=== PATIENT | female | born 1990 | race Caucasian/White ===

== ENCOUNTER 2017-03-05 01:00 | Day surgery (SDC) | payer BC, OTHER ==
[2017-03-05 01:32] VITALS: BP 124/76; TEMP 99.4; BMI 31.3
[2017-03-05 02:08] LABS: Amnisure Test No Membranes Rupture (No Rupture)
--- NOTE | 2017-03-05 07:09 | PRG ---
OB ER ENCOUNTER DATE OF SERVICE: 03/05/2017 PRIMARY PRIVATE INVESTIGATOR SURVEILLANCE: Sara Arteaga M.D. CHIEF COMPLAINT: Leakage of fluid. HISTORY OF PRESENT ILLNESS: The patient is a 26-year-old female with an intrauterine at 3 9 weeks and 0 days who presents to labor and delivery today after experiencing some leakage of fluid that she says has kept her underwear moist. The patient denies any regular contractions, any vagin al bleeding. She denies any headache, chest pain, shortness of breath. She has had some nausea, de nies vomiting. Had diarrhea yesterday, has had several bowel movements today, but denies any consti pation. She denies any new rashes, hip problems or knee problems. She does report some tightness i n her hips and back. Denies any urinary urgency or frequency. PAST MEDICAL HISTORY: The patient has neurofibromatosis. PAST SURGICAL HISTORY: Negative. ALLERGIES: AMOXICILLIN and PEANUT OIL. MEDICATIONS: vitamins. SOCIAL HISTORY: Denies drug, alcohol or tobacco use. OB LABS: Unavailable at the time of dictation. REVIEW OF SYSTEMS: Per HPI. PHYSICAL EXAMINATION: VITAL SIGNS: Blood pressure 124/76, heart rate 71, respiratory rate 18, temperature 99.4. GENERAL: She appears to be in no acute distress. She is alert and oriented, cooperative and pleasa nt to interact with. HEENT: Head is normocephalic, atraumatic. LUNGS: Clear to auscultation bilaterally. HEART: Regular rate and rhythm. ABDOMEN: Soft. EXTREMITIES: Nontender, nonedematous. CERVICAL EXAM: The patient is closed and thick per nursing staff. heart tracing performed fo r threatened labor at term, duration is about 1 hour, baseline is in the 130s with moderate long-ter m variability, positive accelerations, no decelerations, and no consisting contractions visible on t he monitor. AmniSure test is negative. ASSESSMENT AND PLAN: The patient is a 26-year-old G1, P0 female with an intrauterine at 3 9 weeks who presented for leakage of fluid; however, has no evidence of rupture of membranes at this time. The patient has a fetus with category 1 tracing. The patient will be discharged to home wit h instructions to follow up with her primary OB as scheduled.
== END 2017-03-05 02:42 | disposition home or self-care (01) ==
LOC: L&D/OP 01:00
PROVIDERS: ATTEND Obstetrics & Gynecology
DX: O26.893 Other specified pregnancy related conditions, third trimester (principal); Q85.00 Neurofibromatosis, unspecified; Z3A.39 39 weeks gestation of pregnancy; Z79.899 Other long term (current) drug therapy; Z88.0 Allergy status to penicillin; Z91.010 Allergy to peanuts; Z87.891 Personal history of nicotine dependence
CPT/HCPCS: 84112

== ENCOUNTER 2017-03-12 20:36 | Inpatient (IN) | payer BC, OTHER ==
[~2017-03-12 20:36] MED LIST: Acetaminophen 500 MG TAB PO PRN; HYDROcodone/Acetaminophen 5/325 mg Tablet PO PRN; Ibuprofen 800 MG TAB PO PRN; LR / Pitocin 40 units/1000 ml 1,000 ML IV PRN; Lidocaine 1% (PF) 30 ML VIAL SC PRN; Ondansetron HCl/PF 4 MG/2 ML Vial IVP PRN; Promethazine HCl 25 MG/ML VIAL IM PRN; Zolpidem Tartrate 5 MG TAB PO PRN
[2017-03-12 21:00] VITALS: BMI 32.1
[2017-03-12] MEDS: Lactated Ringer's 1,000 ML IV SCH (21:12)
[2017-03-12] MEDS: Misoprostol 100 MCG TAB VAG SCH (21:30)
[2017-03-12 21:32] LABS: Mean Platelet Volume 9.5 fL (7.4-10.4); Red Blood Cell (RBC) Count 3.87 mill/uL (4.20-5.40)
[2017-03-12] MEDS: LR 500 ML/Oxytocin 10 units 500 ML IV SCH (21:32)
[2017-03-13] MEDS: Misoprostol 100 MCG TAB VAG SCH ×3 (01:06→13:43)
[2017-03-13] MEDS ORDERED: Fentanyl 4 mcg/Marc 0.1% Cadd 100 ML ONE (05:02)
[2017-03-13] MEDS: Lactated Ringer's 1,000 ML IV SCH ×2 (05:33→13:37)
[2017-03-13] MEDS ORDERED: Acetaminophen 325 MG TAB PO PRN (05:43)
[2017-03-13] MEDS ORDERED: ePHEDrine/0.9% NaCl/PF SYRINGE 50 mg/10 ml SLOW IVP PRN (05:43)
[2017-03-13] MEDS ORDERED: Ondansetron HCl/PF 4 MG/2 ML Vial IVP PRN (05:43)
[2017-03-13] MEDS ORDERED: Lactated Ringer's 500 ML IV PRN (05:43)
[2017-03-13] MEDS ORDERED: Eucerin (Mineral Oil/Petrolatum,White) 30 gm Jar TOP PRN (05:43)
[2017-03-13] MEDS ORDERED: Naloxone HCl 0.4 mg/ml Vial IVP PRN ×2 (05:43)
[2017-03-13] MEDS ORDERED: Promethazine HCl 25 MG/ML VIAL IM PRN (05:43)
[2017-03-13] MEDS ORDERED: diphenhydrAMINE HCl 50 MG/ML 1 ML VIAL IVP PRN (05:43)
[2017-03-13] MEDS ORDERED: Communication Order-Pharmacy FS SCH (05:45)
[2017-03-13] MEDS ORDERED: Fentanyl 4mcg/Marcaine 0.1% Cassette 100 ML EPIDURAL SCH (05:45)
[2017-03-13] MEDS: LR 500 ML/Oxytocin 10 units 500 ML IV SCH (05:59)
--- NOTE | 2017-03-13 19:03 | PDOC.OPDEL ---
OB Operative/Delivery Note Delivery Dr/Surgeon: Jenni Pre-Delivery Diagnosis: elective induction Procedure/Post Delivery Dx: spontaneous vaginal delivery Weeks gestation: 40 Anesthesia: epidural - Findings A Sex: female Weight: 6 lb 14 oz - 5 min: 9 - 10 min: 9 - Additional Findings/Plan Placenta delivered: spontaneous Repaired Obstetrical Laceration: 1st degree Estimated blood loss: 200ml Post delivery plan: routine recovery
[2017-03-13] MEDS ORDERED: diphenhydrAMINE HCl 25 MG CAP PO PRN (19:04)
[2017-03-13] MEDS ORDERED: Bisacodyl 10 MG SUPP PR PRN (19:04)
[2017-03-13] MEDS ORDERED: Preparation H Ointment 28 GM TUBE PR PRN (19:04)
[2017-03-13] MEDS ORDERED: traMADol HCl 50 MG TAB PO PRN (19:04)
[2017-03-13] MEDS ORDERED: Benzocaine/Menthol 20-0.5% 60 ML CAN TOP PRN (19:04)
[2017-03-13] MEDS ORDERED: Lanolin Ointment 7 GM TUBE TOP PRN (19:04)
[2017-03-13] MEDS ORDERED: Milk Of Magnesia 30 ML UDCUP PO PRN (19:04)
[2017-03-13] MEDS ORDERED: LR / Pitocin 40 units/1000 ml 1,000 ML IV SCH (19:15)
[2017-03-13] MEDS: Docusate (Surfak) 240 MG CAP PO SCH (22:09)
[2017-03-13] MEDS: Ibuprofen 800 MG TAB PO SCH (22:09)
[2017-03-14] MEDS: Ibuprofen 800 MG TAB PO SCH ×3 (06:03→21:47)
--- NOTE | 2017-03-14 07:24 | PDOC.PP ---
Post Progress Note Post Day #: 1 PO intake tolerated: yes Flatus: yes Ambulation: yes Vital Signs (12 hours) Temp Pulse Resp BP 03/14/17 05:00 98.3 F 73 18 105/53 L 03/14/17 04:00 98.3 F 75 18 03/14/17 00:00 98.3 F 75 18 03/13/17 22:36 98.5 F 79 18 121/65 Weight Weight 176 lb - Physical Examination General: NAD Cardiovascular: no m/r/g, RRR Respiratory: clear to ausculation bilateral Abdominal: + bowel sounds, lochia, no distention, appropriately TTP Result Diagrams: 03/12/17 21:19 Additional Labs: Post Labs Blood Type A POSITIVE 03/12/17 21:19 Hep Bs Antigen Non-Reactive S/CO (NonReactive) 03/12/17 21:19 - Assessment/Plan post day 1 doing well d/c in AM
[2017-03-14] MEDS ORDERED: Adacel (T-DAP) 0.5 ML VIAL IM ONE (09:00)
[2017-03-14] MEDS: Ferrous Sulfate 325 MG TAB PO SCH ×2 (09:39→09:40)
[2017-03-14] MEDS: Docusate (Surfak) 240 MG CAP PO SCH ×2 (09:41→21:47)
[2017-03-14] MEDS: Prenatal Vitamin 1 TAB PO SCH (09:41)
[2017-03-14 17:26] VITALS: TEMP 98.3
[2017-03-15] MEDS: Ibuprofen 800 MG TAB PO SCH (04:34)
--- NOTE | 2017-03-15 08:15 | PDOC.PP ---
Post Progress Note Post Day #: 2 PO intake tolerated: yes Flatus: yes Ambulation: yes Weight Weight 176 lb - Physical Examination General: NAD Cardiovascular: no m/r/g, RRR Respiratory: clear to ausculation bilateral Abdominal: + bowel sounds, lochia, no distention, appropriately TTP Result Diagrams: 03/12/17 21:19 Additional Labs: Post Labs Blood Type A POSITIVE 03/12/17 21:19 Hep Bs Antigen Non-Reactive S/CO (NonReactive) 03/12/17 21:19 - Assessment/Plan doing well post day 2 d/c home f/u 6 weeks
[2017-03-15] MEDS: Ferrous Sulfate 325 MG TAB PO SCH (09:33)
[2017-03-15] MEDS: Docusate (Surfak) 240 MG CAP PO SCH (09:36)
[2017-03-15] MEDS: Prenatal Vitamin 1 TAB PO SCH (09:36)
[2017-03-15 09:50] VITALS: BP 123/67
[2017-03-15] MEDS ORDERED: Bupivacaine 0.25% HCL 30 ML VIAL ONE (14:38)
== END 2017-03-15 10:30 | disposition home or self-care (01) | DRG 775 ==
LOC: L&D 20:36 → 3SW 03-13 21:41
PROVIDERS: ADMIT Obstetrics & Gynecology; ATTEND Obstetrics & Gynecology
PROC: 10E0XZZ Delivery of Products of Conception, External Approach (ICD-10-PCS; principal; 2017-03-13)
DX: O70.0 First degree perineal laceration during delivery (principal); Q85.00 Neurofibromatosis, unspecified; Z37.0 Single live birth; Z3A.40 40 weeks gestation of pregnancy; O99.89 Other specified diseases and conditions complicating pregnancy, childbirth and the puerperium
CPT/HCPCS: 36415; 85027; 86780; 87340; J0595; J2405; J7120; S0020

== ENCOUNTER 2017-06-14 04:21 | Emergency (ER) | payer BC ==
[2017-06-14] MEDS ORDERED: Ibuprofen 800 MG TAB ONE (06:04)
--- NOTE | 2017-06-14 08:26 | ULT ---
PRELIMINARY REPORT/[facility]/EMERGENCY AFTER HOURS PROCEDURE: EXAM: US Abdomen Limited, Right Upper Quadrant CLINICAL HISTORY: 26 years old, female; Pain and signs and symptoms; Nausea; Abdominal pain; Localized; Right upper antonio drcristi (ruq) TECHNIQUE: Real-time ultrasound of the right upper quadrant with image documentation. COMPARISON: No relevant prior studies available. FINDINGS: Normal gallbladder. No cholelithiasis. No gallbladder wall thickening or pericholecystic fluid. No biliary dilation, common duct measures 3.6 mm. Unremarkable liver, no focal abnormality. Visible pancreas unremarkable. Images of the right kidney show no hydronephrosis. IMPRESSION: Essentially unremarkable right upper quadrant abdominal ultrasound. No cholelithiasis or biliary tree dilation. Thank you for allowing us to participate in the care of your patient. Dictated and Authenticated by: Silvio Gutiérrez MD 06/14/2017 5:32 AM Central Time ([place] & [place]) FINAL REPORT RIGHT UPPER QUADRANT ULTRASOUND: CLINICAL HISTORY: Right upper quadrant pain with nausea. FINDINGS: No focal hepatic lesion or acute gallbladder pathology identified. The common duct is normal measuri ng 3 mm in diameter. Fulton's sign is reported as negative. No ascites. IMPRESSION: No acute gallbladder pathology evident sonographically. POS: [facility]
== END 2017-06-14 06:08 | disposition home or self-care (01) ==
LOC: ERS 04:21
DX: K29.70 Gastritis, unspecified, without bleeding (principal); F17.290 Nicotine dependence, other tobacco product, uncomplicated; F17.210 Nicotine dependence, cigarettes, uncomplicated
CPT/HCPCS: 76705

== ENCOUNTER 2018-01-01 23:18 | Emergency (ER) | payer BC, OTHER ==
[2018-01-02] LABS: Bilirubin Negative (Negative); Blood, Urine Large (Negative); Clarity CLEAR (Clear); Glucose, Urine (Dipstick) Negative (Negative); Leukocyte Negative (Negative); Nitrite Negative (Negative); Protein, Urine (Dipstick) Negative (Neg-Trace); Specific Gravity, Urine 1.025 (1.002-1.036); Urobilinogen 0.2 mg/dL (0.2-1.0); pH, Urine 5.5 (5.0-9.0)
[2018-01-02 00:02] LABS: Bacteria/HPF None Seen HPF (None Seen); Hyaline Casts/LPF 0-3 HYALINE CAST LPF (0-3 Hyaline); Pathc Cast-AUWi Flag 0.14 (0-2.49); Pregnancy Test - Urine (BHCG) Negative (Negative); Pregu Control Background? CLEAR/WHITE (CLR/WHITE); Pregu Control Bar Appear? YES (CONTROL BAR); RBC/HPF 0-3 HPF (0-3); Specific Gravity 1.025 (1.002-1.036); Squamous Epithelial 0-3 HPF (0-3); WBC/HPF 0-3 HPF (0-3)
[2018-01-02 04:08] LABS: #Basophils 0.1 thou/uL (0.0-0.2); #Eosinphils 0.3 thou/uL (0.0-0.7); #Lymphocytes 1.9 thou/uL (1.20-3.40); #Monocytes 0.5 thou/uL (0.11-0.59); #Neutrophils 4.8 thou/uL (1.40-6.50); %Basophils 0.8 % (0.0-1.0); %Eosinophils 3.9 % (0.0-10.0); %Lymphocytes 24.8 % (21.0-51.0); %Neutrophils 64.4 % (42.0-75.0); Hemoglobin 13.6 g/dL (12.0-16.0); Mean Corpuscular Volume 91.4 fL (78.0-98.0); Mean Platelet Volume 8.9 fL (7.4-10.4); Platelet Count 114 thou/uL (130-400); RBC Distribution Width 11.6 % (11.5-14.5); Red Blood Cell (RBC) Count 4.24 mill/uL (4.20-5.40); White Blood Cell (WBC) Count 7.5 thou/uL (4.8-10.8)
[2018-01-02 04:25] LABS: ALT (SGPT) 10 U/L (8-55); AST (SGOT) 13 U/L (5-34); Albumin 3.7 g/dL (3.5-5.0); Alkaline Phosphatase 38 U/L (40-150); Anion Gap 12 mmol/L (10-20); BUN (Urea Nitrogen) 14 mg/dL (7.0-18.7); Bilirubin, Total 0.6 mg/dL (0.2-1.2); Calc. Creatinine Clearance 0 mL/min (70-130); Carbon Dioxide 22 mmol/L (22-29); Chloride 109 mmol/L (98-107); Estimated GFR-MDRD 87; Globulin 2.1 g/dL (2.4-3.5); Glucose 80 mg/dL (70-105); Potassium 3.6 mmol/L (3.5-5.1); Protein, Total 5.8 g/dL (6.0-8.3); Sodium 139 mmol/L (136-145)
--- NOTE | 2018-01-02 09:06 | ULT ---
PRELIMINARY REPORT/[facility]/EMERGENTY AFTER-HOURS PROCEDURE US Pelvis Complete, Transabdominal EXAM DATE/TIME: 01/02/2018 3:55 AM CLINICAL HISTORY: 27 years old, female; Pain; Pelvic pain; Patient HX: Mid pelvic to rlq pain x few days, worse tonight ; Additional info: Mirena iud placed 9 months ago TECHNIQUE: Real-time transabdominal pelvic ultrasound (complete) with image documentation. COMPARISON: No relevant prior studies available. FINDINGS: Uterus/cervix: Uterus is appears normal in size 3.3 x 5 x 8.5 cm. IUD in central portion of normal si zed uterus. Endometrial stripe is 6 mm thickness. No evidence of uterine mass. Right ovary: Right ovary 3 x 1.6 x 2.7 cm appears normal. Vascular flow noted to right ovary. Normal blood flow. Left ovary: Left ovary 3.9 x 2.1 x 3.8 cm appears normal. Vascular flow noted to left ovary. Normal b lood flow. Free fluid: No evidence of pelvic free fluid. Bladder: Bladder appears within normal limits. IMPRESSION: 1. Normal appearing uterus and endometrium with IUD in place. 2. Normal appearing bilateral ovaries. 3. No evidence of pelvic free fluid. Thank you for allowing us to participate in the care of your patient. Dictated and Authenticated by: Amber Barriga MD 01/02/2018 4:40 AM Central Time ([place] & [place]) FINAL REPORT BY DR. COOK EMERGENCY AFTER HOURS STUDY ULTRASOUND PELVIC ULTRASOUND TRANSVAGINAL DOPPLER DUPLEX: Date: 01/02/18 Time: 0408 hours HISTORY: 27-year-old female with pelvic pain. TECHNIQUE: Transabdominal transducer used to evaluate intrapelvic contents using the urinary bladder as an acous tic window. Endovaginal transducer used to visualize intrapelvic contents in greater detail. Color fl ow Doppler and Pulsed Doppler spectral waveform analysis of ovaries. FINDINGS: Uterus is normal in size and shape. Endometrial stripe is of normal thickness. No uterine leiomyoma is identified. Bilateral ovaries are normal in size. Blood flow is demonstrated in both ovaries. No ovarian cyst (defined as 2 cm or greater) is identified. No free fluid is in the cul-de-sac. There is an IUD in place. This report agrees with the preliminary report by Jeanna. IMPRESSION: 1. Normal. 2. Intrauterine device. jennifer palacios POS: [facility]
[2018-01-02 23:04] LABS: Chlamydia by PCR Not Detected (NotDetected); GC by PCR Not Detected (NotDetected)
== END 2018-01-02 06:59 | disposition home or self-care (01) ==
LOC: ERS 23:18
DX: N76.0 Acute vaginitis (principal); B96.89 Other specified bacterial agents as the cause of diseases classified elsewhere; F17.210 Nicotine dependence, cigarettes, uncomplicated; Z71.6 Tobacco abuse counseling
CPT/HCPCS: 36415; 76856; 80053; 81003; 81015; 81025; 85025; 87480; 87491; 87510; 87591; 87660; 93976; 99406